=== PATIENT | male | born 1950 | race Caucasian/White ===

== ENCOUNTER 2017-03-07 09:52 | Day surgery (SDC) | payer MEDICARE, BC ==
[2017-03-04] MEDS: Sodium Chloride 0.9% 1,000 ML IV SCH (10:45)
[~2017-03-07 09:52] MED LIST: Metoclopramide 10 MG/2 ML SDV IV PRN
[2017-03-07] MEDS: Sodium Chloride 0.9% 1,000 ML IV SCH (10:45)
[2017-03-07] MEDS ORDERED: Propofol 200 MG/20 ML SDV ONE (12:35)
[2017-03-07] MEDS ORDERED: Iopamidol 612 MG/ML 100 ML Bottle IV PRN (13:33)
[2017-03-07] MEDS ORDERED: Diatrizoate Meglumine/Diatrizoate Sodium 37% 30 ML Bottle PO PRN (13:33)
[2017-03-07] MEDS ORDERED: Sodium Chloride 0.9% 50 ML SDV FLUSH SCH (13:45)
--- NOTE | 2017-03-07 16:24 | OR ---
DATE OF OPERATION: 03/07/2017 PREOPERATIVE DIAGNOSIS: Perforated diverticulitis. POSTOPERATIVE DIAGNOSIS: Severe diverticulosis of the sigmoid colon. OPERATION: Colonoscopy. COMPLICATIONS: None. DRAINS: None. SPECIMENS: None. ESTIMATED BLOOD LOSS: Zero. ANESTHESIA: General propofol anesthesia. INDICATION: Mr. Huang is a 66-year-old gentleman who had an episode of perforated diverticulitis, which was managed nonoperatively in [place]. He is here for his colonoscopy followup. The above-mentioned procedure was explained. The risks, benefits, complications were explained. The patient understood and agreed, and was brought to the operating room. DESCRIPTION OF PROCEDURE: The patient was brought to the operating room, placed in the left lateral decubitus position on the operating room table. Satisfactory general propofol anesthesia was administered. We began by performing a rectal examination, which was within normal limits with some perianal skin tags suggestive of previous external hemorrhoids. Next, the endoscope was placed by finger introduction into the rectum and subsequently advanced to the level of the cecum. Cecum was identified by the appendiceal orifice, the cecal strap, and ileocecal valve. Next, careful evaluation of mucosa was performed on withdrawal. There were no polyps or telangiectasias or neoplastic growths, however, there was moderate diverticulosis involving the splenic flexure and descending colon, but severe diverticulosis with large diverticula and medium diverticula identified in the sigmoid colon. The mid point of the sigmoid colon did appear quite thickened, however, the camera was easily able to traverse this. The tissues were normal mucosa with no evidence of neoplasia. Next, I performed a retroflexion maneuver in the rectum, which revealed no significant findings. The colonoscope was used to decompress the colon and the endoscope was withdrawn. The patient tolerated the procedure well. There were no complications. Instrument count was correct. Recommend a followup CT scan, which we will get today in consideration for laparoscopic sigmoid colectomy. HIEU/BRIGETTE /[id number]
--- NOTE | 2017-03-09 10:27 | CT ---
DATE OF SERVICE: 03/07/17 CLINICAL DATA: FOLLOW UP PERFORATED DIVERTICULITIS ENHANCED ABDOMEN AND PELVIS CT Multislice acquisition through the abdomen and pelvis with IV and oral contrast was performed. No priors. There are mild atelectatic changes in the dependent portions of both lower lungs and in both lung bases. The lung bases are otherwise clear. The liver is normal size with homogeneous attenuation. No focal hepatic lesions. The gallbladder appears normal. No biliary duct dilatation. The spleen appears normal. The pancreas appears normal. The right and left adrenals appear normal. The right and left kidneys enhance symmetrically. There is an 8 mm sharply transcribed fluid-density lesion in the lower pole of the right kidney consistent with a benign renal cyst. There are a couple of small low-density lesions in the left kidney which are most likely cysts. The kidneys otherwise appear normal. No hydronephrosis or hydroureter. The bladder is fluid filled and appears normal. The prostate is enlarged. There is moderate diverticulosis of the descending and sigmoid colon. There is pericolonic fat stranding adjacent to the distal descending and proximal sigmoid colon with mural thickening within this segment of colon also. The findings are consistent with diverticulitis. I do not see evidence of a diverticular abscess. There are scattered air-fluid levels in the small bowel and colon. They are not dilated. Enterocolitis should be considered. I cannot completely exclude a developing obstruction or ileus and followup imaging is recommended if clinically indicated. No free air. No free fluid. No adenopathy. No aortic aneurysm or dissection. IMPRESSIONS 1. Diverticulosis with findings involving distal descending and proximal sigmoid colon consistent with diverticulitis. No evidence of diverticular abscess. 2. Other findings as discussed above. [id number] [facility]
== END 2017-03-07 15:28 | disposition home or self-care (01) ==
LOC: LB.SDS 09:52
PROVIDERS: ATTEND Surgery
DX: K57.30 Diverticulosis of large intestine without perforation or abscess without bleeding (principal); K64.4 Residual hemorrhoidal skin tags
CPT/HCPCS: 36415; 45378; 74177; 82565; A9270; J2704; J7040; Q9967